=== PATIENT | female | born 1985 | race Caucasian/White ===

== ENCOUNTER 2017-04-19 23:42 | Emergency (ER) | payer OTHER ==
[~2017-04-19] VITALS: Ht 162.6 cm; Wt 149.7 kg
[~2017-04-19 23:42] MED LIST: ACETAMINOPHEN-1 EAC1 PO; APAP500 PO; BACTRIM DS TAB1 EACH PO; CARAFATE1 GM PO; CLEOCIN HCL150 MG PO; DOXYCYCLINE 10100 M1 PO; FLEXERIL PO; HYDROCODON-ACE1 EAC5 PO; HYDROCODONE-AP1 EAC6 PO; IBUPROFEN 800800 M1 PO; IBUPROFEN 800800 MG PO; KEFLEX500 MG PO; MOBIC7.5 MG PO; NAPROSYN500 MG PO; NOHOMEMEDICATIONS; NORCO 5-325 TA1 EAC1 PO; NORCO 5-325 TA1 EACH PO; PENICILLIN VK500 MG PO; PERCOCET 5-3251 EACH PO; PREDNISONE 20 M20 M1 PO; PROAIR HFA8.5 GM INH; PROBIOTIC1 EAC1 PO; PROTONIX 20 MG20 MG PO; ULTRAM 50MG TAB50 MG PO; ZOFRAN ODT4 MG PO; ZOFRAN4 MG PO
[2017-04-20 00:29] LABS: ABSOLUTE BASOPHILS 0.1 thou/uL (0.0-0.2); ABSOLUTE EOSINOPHILS 0.2 thou/uL (0.0-0.7); ABSOLUTE MONOCYTES 0.6 thou/uL (0.0-1.2); ABSOLUTE NEUTROPHILS 7.2 thou/uL (1.6-8.1); BASOPHILS 0.8 %; EOSINOPHILS 2.2 %; HEMOGLOBIN 14.3 gm/dL (12.0-15.0); MCH 29.5 pg (26.0-34.0); MCHC 33.3 g/dL (28.0-37.0); MCV 88.4 fL (80.0-100.0); MONOCYTES 5.8 %; MPV 9.5 fl. (7.2-11.1); NUCLEATED RBCS 0 /100WBC; PLATELET COUNT* 202 thou/uL (150-400); POLYS 64.2 %; RBC 4.86 mil/uL (4.20-5.00); RDW-CV 13.8 % (10.5-14.5); WBC 11.2 thou/uL (4.0-11.0)
[2017-04-20 00:30] LABS: URINE BILIRUBIN NEGATIVE (Negative); URINE BLOOD NEGATIVE (Negative); URINE CLARITY CLEAR; URINE COLOR YELLOW; URINE GLUCOSE-RANDOM NEGATIVE (Negative); URINE KETONES NEGATIVE (Negative); URINE LEUKOCYTES-REFLEX NEGATIVE (Negative); URINE NITRITE-REFLEX NEGATIVE (Negative); URINE PROTEIN NEGATIVE (Negative); URINE SPECIFIC GRAVITY 1.015 (1.005-1.030); URINE UROBILINOGEN 0.2 E.U./dl (0.2-1.0)
[2017-04-20 00:46] LABS: CALCIUM 8.4 mg/dL (8.5-10.1); CREATININE 0.9 mg/dL (0.6-1.3); POTASSIUM 3.8 mmol/L (3.5-5.1)
[2017-04-20 00:47] LABS: AMP/METHAMP Negative (Negative); BARBITURATES Negative (Negative); BENZODIAZEPINES Negative (Negative); COCAINE Negative (Negative); METHADONE Negative (Negative); OPIATES Negative (Negative); PCP Negative (Negative); THC POSITIVE (Negative)
[2017-04-20 00:50] LABS: ALBUMIN 3.1 g/dL (3.4-5.0); TOTAL BILIRUBIN 0.2 mg/dL (<0.1-1.0); TOTAL PROTEIN 6.5 g/dL (6.4-8.2)
[2017-04-20] MEDS ORDERED: ZOFRAN ODT4 MG PO (01:18)
[2017-04-20] MEDS ORDERED: PHENERGAN 25 MG25 M1 PO (01:25)
[2017-04-20 01:30] VITALS: BP 132/78
== END 2017-04-20 01:30 | disposition home or self-care (01) ==
LOC: M.ERS 23:42
PROVIDERS: Personal Emergency Response Attendant
DX: R11.2 Nausea with vomiting, unspecified (principal); R10.10 Upper abdominal pain, unspecified; F17.210 Nicotine dependence, cigarettes, uncomplicated; Z98.51 Tubal ligation status; Z88.5 Allergy status to narcotic agent

== ENCOUNTER 2017-06-14 10:44 | Emergency (ER) | payer OTHER ==
[~2017-06-14] VITALS: Ht 162.6 cm; Wt 149.7 kg
[~2017-06-14 10:44] MED LIST changes: +PHENERGAN 25 MG25 M1 PO
[2017-06-14] MEDS ORDERED: KEFLEX500 M2 PO (12:30)
[2017-06-14 12:39] VITALS: BP 148/89
== END 2017-06-14 12:40 | disposition home or self-care (01) ==
LOC: M.ERS 10:44
DX: L73.2 Hidradenitis suppurativa (principal); Z88.5 Allergy status to narcotic agent

== ENCOUNTER 2017-12-16 08:23 | Emergency (ER) | payer OTHER ==
[~2017-12-16] VITALS: Ht 162.6 cm; Wt 151.1 kg
[~2017-12-16 08:23] MED LIST changes: +KEFLEX500 M2 PO
[2017-12-16] MEDS ORDERED: FLEXERIL PO (08:51)
[2017-12-16] MEDS ORDERED: NORCO 5-325 TA1 EACH PO (08:51)
[2017-12-16] MEDS ORDERED: IBUPROFEN 800800 M1 PO (08:51)
[2017-12-16 09:05] VITALS: BP 142/93
== END 2017-12-16 09:05 | disposition home or self-care (01) ==
LOC: M.ERS 08:23
DX: S46.811A Strain of other muscles, fascia and tendons at shoulder and upper arm level, right arm, initial encounter (principal); S16.1XXA Strain of muscle, fascia and tendon at neck level, initial encounter; X58.XXXA Exposure to other specified factors, initial encounter; Y93.89 Activity, other specified; Y92.89 Other specified places as the place of occurrence of the external cause; Y99.8 Other external cause status; Z88.5 Allergy status to narcotic agent; F17.210 Nicotine dependence, cigarettes, uncomplicated; M79.1 Myalgia

== ENCOUNTER 2018-12-25 09:18 | Emergency (ER) | payer OTHER ==
[~2018-12-25] VITALS: Ht 162.6 cm; Wt 127.0 kg
[2018-12-25] MEDS ORDERED: AMOXICILLIN 50500 MG PO (10:25)
[2018-12-25] MEDS ORDERED: TYLENOL WITH CO1 TA1 PO (10:25)
[2018-12-25] MEDS ORDERED: LIDOCAINE VISC100 ML SWISH&SPIT (10:25)
[2018-12-25 10:34] VITALS: BP 162/110
== END 2018-12-25 10:35 | disposition home or self-care (01) ==
LOC: M.ERS 09:18
DX: K02.9 Dental caries, unspecified (principal); K04.7 Periapical abscess without sinus; F17.210 Nicotine dependence, cigarettes, uncomplicated; Z98.890 Other specified postprocedural states; Z98.51 Tubal ligation status

== ENCOUNTER 2020-11-25 17:50 | Emergency (ER) | payer OTHER ==
[~2020-11-25] VITALS: Ht 162.6 cm; Wt 154.2 kg
[~2020-11-25 17:50] MED LIST changes: +AMOXICILLIN 50500 MG PO; +LIDOCAINE VISC100 ML SWISH&SPIT; +TYLENOL WITH CO1 TA1 PO
[2020-11-25] MEDS ORDERED: AMOXICILLIN 50500 MG PO (19:50)
[2020-11-25] MEDS ORDERED: NAPROSYN500 MG PO (19:50)
[2020-11-25 20:01] VITALS: BP 132/54
== END 2020-11-25 20:02 | disposition home or self-care (01) ==
LOC: M.ERS 17:50
DX: K04.7 Periapical abscess without sinus (principal); F17.210 Nicotine dependence, cigarettes, uncomplicated; Z98.890 Other specified postprocedural states; Z98.51 Tubal ligation status

== ENCOUNTER 2021-02-20 16:52 | Emergency (ER) | payer OTHER ==
[~2021-02-20] VITALS: Ht 162.6 cm; Wt 154.2 kg
[2021-02-20] MEDS ORDERED: HYDROCODON-ACE1 EAC7 PO (17:51)
[2021-02-20] MEDS ORDERED: AMOXICILLIN 50500 MG PO (17:51)
[2021-02-20 18:15] VITALS: BP 146/72
== END 2021-02-20 18:15 | disposition home or self-care (01) ==
LOC: M.ERS 16:52
DX: K04.7 Periapical abscess without sinus (principal); F17.210 Nicotine dependence, cigarettes, uncomplicated; Z98.51 Tubal ligation status